=== PATIENT | male | born 1970 | race African-American/Black ===

== ENCOUNTER 2021-02-20 23:22 | Observation (INO) ==
[2021-02-21] MEDS ORDERED: ACETAMINOPHEN 325 MG TABLET PO PRN (01:54)
[2021-02-21] MEDS ORDERED: NICOTINE 21 MG/24 HR PATCH TRANSDERM PRN (01:54)
[2021-02-21] MEDS ORDERED: GLUCAGON 1 MG VIAL IM PRN (01:54)
[2021-02-21] MEDS ORDERED: DEXTROSE 50% 25 GM/50 ML VIAL IV PRN (01:54)
[2021-02-21] MEDS ORDERED: MORPHINE 4 MG/1 ML VIAL IV PRN (01:54)
[2021-02-21] MEDS ORDERED: hydrALAZINE 20 MG/1 ML VIAL IV PRN (01:54)
[2021-02-21] MEDS ORDERED: ONDANSETRON 4 MG/2 ML VIAL IV PRN (01:54)
[2021-02-21 05:48] LABS: Basophils % 0.1 % (0.0-0.8); Eosinophils % 0.3 % (0.00-10.9); Hematocrit 25.2 VOL% (42.0-52.0); Hemoglobin 7.5 GM/DL (14.0-18.0); Immature Granulocytes % 0.8 %; Immature Granulocytes Absolute 0.09 #; Lymphocytes # 0.3 10*3/uL (1.4-4.0); Lymphocytes % 2.6 % (21.2-54.2); Mean Corpuscular HGB Conc 29.8 GM/DL (32-36); Mean Corpuscular Volume 94.4 FL (87-102); Monocytes % 6.9 % (1.7-12.7); Neutrophils % 89.3 % (38.7-73.9); Platelet Count 241 T/CUMM (130-400); Red Blood Count 2.67 MC/CUMM (3.8-5.5); Red Cell Distribution Width 15.9 % (9.3-17.3); White Blood Count 11.1 T/CUMM (4-12)
[2021-02-21 06:01] LABS: Albumin 2.4 G/DL (3.4-5.0); Bilirubin,Total 0.4 MG/DL (0.2-1.0); Osmolality,Calculated 283.4 MOS/KG (273-304); Potassium 3.8 MMOL/L (3.5-5.1); Total Protein 6.1 G/DL (6.4-8.2)
[2021-02-21 06:15] LABS: Eosinophils 2 % (0-10); Hypochromasia Slight; Lymphocytes 2 % (20-55); Platelet Estimate Normal; Segmented Neutrophils 93 % (50-85); Total Cells Counted 100
[2021-02-21] MEDS: PIPERACILLIN/TAZOBACTAM 3,375 MG in SODIUM CHLORIDE 0.9% 100 ML IV SCH ×3 (06:20→23:04)
[2021-02-21] MEDS: ALBUTEROL/IPRATROPIUM 3 ML NEB RESP TX SCH ×3 (07:30→19:35)
[2021-02-21] MEDS: azaTHIOprine 50 MG TABLET PO SCH (08:37)
[2021-02-21] MEDS: SODIUM BICARBONATE 650 MG TABLET PO SCH ×2 (08:38→20:52)
[2021-02-21] MEDS: predniSONE 10 MG TABLET PO SCH (08:38)
[2021-02-21] MEDS: ASPIRIN EC 81 MG TABLET PO SCH (08:38)
[2021-02-21] MEDS: calcitrioL 0.25 MCG CAPSULE PO SCH (08:38)
[2021-02-21] MEDS: TACROLIMUS 0.5 MG CAPSULE PO SCH ×2 (08:38→20:53)
[2021-02-21] MEDS: amLODIPine 5 MG TABLET PO SCH (08:38)
[2021-02-21] MEDS: carvediloL 3.125 MG TABLET PO SCH ×2 (08:38→20:53)
[2021-02-21] MEDS: PANTOPRAZOLE 40 MG TABLET PO SCH (08:39)
[2021-02-21] MEDS: MYCOPHENOLATE 180 MG TABLET PO SCH ×2 (09:25→20:52)
[2021-02-21] MEDS: POTASSIUM PHOS/SOD PHOS 250 MG TABLET PO SCH ×2 (11:33→16:18)
[2021-02-21] MEDS: INSULIN LISPRO 100 UNIT/ML SUBCUT SCH ×2 (16:19→20:54)
[2021-02-21] MEDS: ATORVASTATIN 10 MG TABLET PO SCH (20:53)
[2021-02-22] MEDS: ALBUTEROL/IPRATROPIUM 3 ML NEB RESP TX SCH ×4 (01:54→19:30)
[2021-02-22] MEDS: PIPERACILLIN/TAZOBACTAM 3,375 MG in SODIUM CHLORIDE 0.9% 100 ML IV SCH ×3 (05:10→22:22)
[2021-02-22 05:31] LABS: Basophils % 0.4 % (0.0-0.8); Eosinophils # 0.1 10*3/uL (0.0-0.87); Eosinophils % 0.5 % (0.00-10.9); Hematocrit 23.2 VOL% (42.0-52.0); Immature Granulocytes % 0.7 %; Immature Granulocytes Absolute 0.07 #; Lymphocytes # 0.3 10*3/uL (1.4-4.0); Lymphocytes % 3.2 % (21.2-54.2); Mean Corpuscular HGB Conc 30.2 GM/DL (32-36); Mean Corpuscular Volume 93.5 FL (87-102); Monocytes % 6.6 % (1.7-12.7); Neutrophils % 88.6 % (38.7-73.9); Platelet Count 221 T/CUMM (130-400); Red Blood Count 2.48 MC/CUMM (3.8-5.5); Red Cell Distribution Width 15.8 % (9.3-17.3); White Blood Count 9.9 T/CUMM (4-12)
[2021-02-22 05:45] LABS: Albumin 2.4 G/DL (3.4-5.0); Bilirubin,Total 0.6 MG/DL (0.2-1.0); Calcium 8.1 MG/DL (8.5-10.1); Osmolality,Calculated 286.1 MOS/KG (273-304); Potassium 3.9 MMOL/L (3.5-5.1); Total Protein 6.1 G/DL (6.4-8.2)
[2021-02-22 05:55] LABS: Eosinophils 3 % (0-10); Hypochromasia 2+; Lymphocytes 2 % (20-55); Microcytosis 1+; Ovalocytes Slight; Platelet Estimate Adequate; Segmented Neutrophils 92 % (50-85); Total Cells Counted 100
[2021-02-22] MEDS ORDERED: SODIUM CHLORIDE 0.9% 1,000 ML IV PRN (07:59)
[2021-02-22] MEDS: azaTHIOprine 50 MG TABLET PO SCH (08:25)
[2021-02-22] MEDS: TACROLIMUS 0.5 MG CAPSULE PO SCH ×2 (08:26→21:06)
[2021-02-22] MEDS: ASPIRIN EC 81 MG TABLET PO SCH (08:26)
[2021-02-22] MEDS: MYCOPHENOLATE 180 MG TABLET PO SCH ×2 (08:27→21:06)
[2021-02-22] MEDS: predniSONE 10 MG TABLET PO SCH (08:27)
[2021-02-22] MEDS: SODIUM BICARBONATE 650 MG TABLET PO SCH ×2 (08:27→21:06)
[2021-02-22] MEDS: PANTOPRAZOLE 40 MG TABLET PO SCH (08:27)
[2021-02-22] MEDS: POTASSIUM PHOS/SOD PHOS 250 MG TABLET PO SCH ×3 (08:30→16:05)
[2021-02-22] MEDS: calcitrioL 0.25 MCG CAPSULE PO SCH (08:31)
[2021-02-22] MEDS: amLODIPine 5 MG TABLET PO SCH (08:33)
[2021-02-22] MEDS: carvediloL 3.125 MG TABLET PO SCH ×2 (08:33→21:06)
[2021-02-22] MEDS: INSULIN LISPRO 100 UNIT/ML SUBCUT SCH ×4 (08:38→23:34)
[2021-02-22 09:26] LABS: Basophils % 0.3 % (0.0-0.8); Eosinophils # 0.1 10*3/uL (0.0-0.87); Eosinophils % 0.6 % (0.00-10.9); Hematocrit 25.2 VOL% (42.0-52.0); Hemoglobin 7.4 GM/DL (14.0-18.0); Immature Granulocytes % 0.8 %; Immature Granulocytes Absolute 0.09 #; Lymphocytes # 0.5 10*3/uL (1.4-4.0); Lymphocytes % 3.9 % (21.2-54.2); Mean Corpuscular HGB Conc 29.4 GM/DL (32-36); Mean Corpuscular Volume 95.1 FL (87-102); Mean Platelet Volume 12.8 FL (9.6-12.0); Neutrophils % 88.4 % (38.7-73.9); Platelet Count 261 T/CUMM (130-400); Red Blood Count 2.65 MC/CUMM (3.8-5.5); Red Cell Distribution Width 15.7 % (9.3-17.3); White Blood Count 11.8 T/CUMM (4-12)
[2021-02-22 09:45] LABS: Burr Cells Slight; Eosinophils 2 % (0-10); Hypochromasia 1+; Lymphocytes 3 % (20-55); Microcytosis 1+; Ovalocytes Slight; Platelet Estimate Adequate; Segmented Neutrophils 92 % (50-85); Total Cells Counted 100
[2021-02-22 09:47] LABS: % Iron Saturation 35.7 % (18-50); Ferritin 1262.8 ng/ml (26-388)
[2021-02-22 09:50] LABS: Folate 10.96 NG/ML (5.38-24.0); Vitamin B12 418 PG/ML (211-911)
[2021-02-22 10:32] LABS: Sedimentation Rate-Westergren 82 MM/HR (0-15)
[2021-02-22] MEDS: ATORVASTATIN 10 MG TABLET PO SCH (21:06)
[2021-02-22 23:22] LABS: Hematocrit 30.2 VOL% (42.0-52.0)
[2021-02-22 23:23] LABS: Hemoglobin 9.1 GM/DL (14.0-18.0)
[2021-02-23] MEDS: ALBUTEROL/IPRATROPIUM 3 ML NEB RESP TX SCH ×2 (00:12→07:40)
[2021-02-23] MEDS: PIPERACILLIN/TAZOBACTAM 3,375 MG in SODIUM CHLORIDE 0.9% 100 ML IV SCH (05:07)
[2021-02-23 05:59] LABS: Basophils # 0.1 10*3/uL (0.0-0.2); Basophils % 0.4 % (0.0-0.8); Eosinophils # 0.1 10*3/uL (0.0-0.87); Eosinophils % 0.8 % (0.00-10.9); Hematocrit 28.9 VOL% (42.0-52.0); Hemoglobin 8.6 GM/DL (14.0-18.0); Immature Granulocytes % 1.2 %; Immature Granulocytes Absolute 0.15 #; Lymphocytes # 0.4 10*3/uL (1.4-4.0); Lymphocytes % 3.4 % (21.2-54.2); Mean Corpuscular HGB Conc 29.8 GM/DL (32-36); Mean Platelet Volume 11.9 FL (9.6-12.0); Monocytes % 8.2 % (1.7-12.7); Platelet Count 243 T/CUMM (130-400); Red Blood Count 3.14 MC/CUMM (3.8-5.5); Red Cell Distribution Width 15.9 % (9.3-17.3); White Blood Count 12.8 T/CUMM (4-12)
[2021-02-23 06:17] LABS: Calcium 8.1 MG/DL (8.5-10.1); Osmolality,Calculated 284.1 MOS/KG (273-304)
[2021-02-23 06:42] LABS: Eosinophils 1 % (0-10); Hypochromasia Slight; Lymphocytes 3 % (20-55); Platelet Estimate Normal; Segmented Neutrophils 92 % (50-85); Total Cells Counted 100
[2021-02-23] MEDS: INSULIN LISPRO 100 UNIT/ML SUBCUT SCH ×2 (08:40→11:42)
[2021-02-23] MEDS: azaTHIOprine 50 MG TABLET PO SCH (09:05)
[2021-02-23] MEDS: ASPIRIN EC 81 MG TABLET PO SCH (09:05)
[2021-02-23] MEDS: TACROLIMUS 0.5 MG CAPSULE PO SCH (09:05)
[2021-02-23] MEDS: amLODIPine 5 MG TABLET PO SCH (09:06)
[2021-02-23] MEDS: carvediloL 3.125 MG TABLET PO SCH (09:06)
[2021-02-23] MEDS: POTASSIUM PHOS/SOD PHOS 250 MG TABLET PO SCH ×2 (09:06→11:42)
[2021-02-23] MEDS: SODIUM BICARBONATE 650 MG TABLET PO SCH (09:06)
[2021-02-23] MEDS: predniSONE 10 MG TABLET PO SCH (09:06)
[2021-02-23] MEDS: calcitrioL 0.25 MCG CAPSULE PO SCH (09:06)
[2021-02-23] MEDS: PANTOPRAZOLE 40 MG TABLET PO SCH (09:06)
[2021-02-23] MEDS: MYCOPHENOLATE 180 MG TABLET PO SCH (09:06)
[2021-02-23 12:07] VITALS: BP 158/76
[2021-02-24 09:23] LABS: Hemoglobin A1 (Alkaline) 97.1 % (96.5-98.5); Hemoglobin A2 (Alkaline) 2.9 % (1.5-3.5)
== END 2021-02-23 12:53 | disposition home or self-care (01) ==
LOC: N.5E
PROVIDERS: ADMIT Internal Medicine; ATTEND Internal Medicine